=== PATIENT | male | born 1955 | race Caucasian/White ===

== ENCOUNTER 2017-08-12 12:51 | Day surgery (SDC) | payer OTHER ==
[2017-08-12] MEDS ORDERED: PROPOFOL 60 ML (14:23)
== END 2017-08-12 15:48 | disposition home or self-care (01) ==
LOC: GIL 12:51
DX: Z12.11 Encounter for screening for malignant neoplasm of colon (principal); D12.2 Benign neoplasm of ascending colon; D12.0 Benign neoplasm of cecum; D12.5 Benign neoplasm of sigmoid colon; I10 Essential (primary) hypertension
CPT/HCPCS: 45380; 88305